=== PATIENT | female | born 1955 | race Caucasian/White ===

== ENCOUNTER 2016-04-09 12:57 | Outpatient (RCR) | payer BC ==
--- OUTSIDE RECORDS SUMMARY | 2016-04-08 15:25 | XMS REPORT | Continuity of Care Document ---
Author Author [facility] Organization [facility] Address Unknown Phone Unavailable Care Team Providers Care Electric Train Driver Name Role Phone ESE RECINOS MD PCP Insurance Providers Payer Name Policy Number Subscriber Name Relationship [facility] [id number] Ese Gilliam 17 Self / Same As Patient Advance Directives Directive Response Recorded Date/Time Advance Directives No 07/10/12 8:11pm Problems No known problems or medical conditions. Medications No known medications. Social History Social History Problem Response Recorded Date/Time Alcohol Use Denies Use 07/10/2012 8:11pm Recreational Drug Use No 07/10/2012 8:11pm Recent Foreign Travel [place] 05/25/2014 2:10pm Hospital Discharge Instructions No hospital discharge instructions. Plan of Care No plan of care. Functional Status No functional status results. Allergies, Adverse Reactions, Alerts Allergen Type Severity Reaction Status Last Updated No Known Drug Allergies Active 07/10/12 Immunizations No immunization records. Vital Signs No known vital signs results. Results Laboratory Results Test Name Result Units Flags Reference Collection Date/Time Result Date/ Time Comments White Blood Count 7.8 10^3/uL 4.3-11.0 05/25/2014 2:15pm 05/25/2014 2: 24pm Red Blood Count 4.51 10^6/uL 4.35-5.85 05/25/2014 2:15pm 05/25/2014 2: 24pm Hemoglobin 13.1 G/DL 11.5-16.0 05/25/2014 2:15pm 05/25/2014 2:24pm Hematocrit 40 % 35-52 05/25/2014 2:15pm 05/25/2014 2:24pm Mean Corpuscular Volume 90 FL 80-99 05/25/2014 2:15pm 05/25/2014 2: 24pm Mean Corpuscular Hemoglobin 29 PG 25-34 05/25/2014 2:15pm 05/25/2014 2: 24pm Mean Corpuscular Hemoglobin Concent 32 G/DL 32-36 05/25/2014 2:1509/2013 2:24pm Red Cell Distribution Width 14.5 % 10.0-14.5 05/25/2014 2:15pm 2013 2:24pm Platelet Count 291 10^3/uL 130-400 05/25/2014 2:15pm 05/25/2014 2:24pm Mean Platelet Volume 10.0 FL 7.4-10.4 05/25/2014 2:15pm 05/25/2014 2: 24pm Neutrophils (%) (Auto) 36 % L 42-75 05/25/2014 2:1505/25/2014 2:24pm Lymphocytes (%) (Auto) 56 % H 12-44 05/25/2014 2:15pm 05/25/2014 2:24pm Monocytes (%) (Auto) 5 % 0-12 05/25/2014 2:15pm 05/25/2014 2:24pm Eosinophils (%) (Auto) 1 % 0-10 05/25/2014 2:15pm 05/25/2014 2:24pm Basophils (%) (Auto) 1 % 0-10 05/25/2014 2:1505/25/2014 2:24pm Neutrophils # (Auto) 2.9 X 10^3 1.8-7.8 05/25/2014 2:1505/25/2014 2: 24pm Lymphocytes # (Auto) 4.4 X 10^3 H 1.0-4.0 05/25/2014 2:15pm 05/25/2014 2: 24pm Monocytes # (Auto) 0.4 X 10^3 0.0-1.0 05/25/2014 2:15pm 05/25/2014 2: 24pm Eosinophils # (Auto) 0.1 10^3/uL 0.0-0.3 05/25/2014 2:05/25/2014 2 :24pm Basophils # (Auto) 0.1 10^3/uL 0.0-0.1 05/25/2014 2:1505/25/2014 2: 24pm Sodium Level 139 MMOL/L 135-145 05/25/2014 2:15pm 05/25/2014 2:44pm Potassium Level 4.1 MMOL/L 3.6-5.0 05/25/2014 2:05/25/2014 2:44pm Chloride Level 104 MMOL/L 98-107 05/25/2014 2:05/25/2014 2:44pm Carbon Dioxide Level 26 MMOL/L 21-32 05/25/2014 2:15pm 05/25/2014 2: 44pm Blood Urea Nitrogen 20 MG/DL H 7-18 05/25/2014 2:pm 05/25/2014 2:44pm Creatinine 0.86 MG/DL 0.60-1.30 05/25/2014 2:pm 05/25/2014 2:44pm BUN/Creatinine Ratio 23 05/25/2014 2:05/25/2014 2:44pm Estimat Glomerular Filtration Rate > 60 05/25/2014 2:pm 2013 2:44pm GFR INTERPRETIVE DATA UNITS FOR ESTIMATED GFR (eGFR): mL/min/1.73 M2 REFERENCE RANGE FOR ESTIMATED GFR (eGFR) eGFR NORMAL eGFR >60 MODERATELY DECREASED eGFR 30-59 SEVERLY DECREASED eGFR 15-29 KIDNEY FAILURE <15 (OR DIALYSIS) Glucose Level 135 MG/DL H 70-105 05/25/2014 2:05/25/2014 2:44pm Calcium Level 9.3 MG/DL 8.5-10.1 05/25/2014 2:05/25/2014 2:44pm Total Bilirubin 0.7 MG/DL 0.1-1.0 05/25/2014 2:05/25/2014 2:44pm Alkaline Phosphatase 97 U/L 40-136 05/25/2014 2:05/25/2014 2:44pm Aspartate Amino Transf (AST/SGOT) 20 U/L 5-34 05/25/2014 2:15pm 2013 2:44pm Alanine Aminotransferase (ALT/SGPT) 14 U/L 0-55 05/25/2014 2:15pm 05/25 2:44pm Lactate Dehydrogenase 215 U/L 125-220 05/25/2014 2:15pm 05/25/2014 2: 44pm Total Protein 7.3 G/DL 6.4-8.2 05/25/2014 2:15pm 05/25/2014 2:44pm Albumin 4.0 G/DL 3.2-4.5 05/25/2014 2:15pm 05/25/2014 2:44pm Ecwa-8-Atejgcfyujcii 2.19 H MG/L 0.00-1.85 05/25/2014 2:15pm 2013 1:19pm Total Protein (PEP) 6.9 GM/DL 6.3-8.3 05/25/2014 2:15pm 05/26/2014 1: 19pm Protein Electrophoresis Pathologist SEE PATH REPORT 05/25/2014 2: 15pm 05/26/2014 1:19pm Protein Electrophoresis Note [id number] 05/25/2014 2:15pm 05/29/2014 8:02am Free Time Light Chains, Quant 11.35 MG/L 3.30-19.40 05/25/2014 2:15pm 05/26/2014 1:19pm Free Lambda Light Chains, Quant 12.43 MG/L 5.71-26.30 05/25/2014 2:15pm 05/26/2014 1:19pm Free Time/Lambda Light Chain Ratio 0.91 RATIO 0.26-1.65 05/25/2014 2: 15pm 05/26/2014 1:19pm Procedures No known history of procedures. Encounters Encounter Location Date/Time Discharged Recurring [facility] 05/25/14 2:10pm
[2016-04-08 15:46] LABS: BASOPHILS % (AUTO) 0 % (0-10); EOSINOPHILS # (AUTO) 0.1 10^3/uL (0.0-0.3); EOSINOPHILS % (AUTO) 1 % (0-10); LYMPHOCYTES # (AUTO) 7.3 X 10^3 (1.0-4.0); LYMPHOCYTES % (AUTO) 67 % (12-44); MEAN CORPUSCULAR HEMOGLOBIN 29 PG (25-34); MEAN CORPUSCULAR HGB CONC 33 G/DL (32-36); MEAN CORPUSCULAR VOLUME 90 FL (80-99); MEAN PLATELET VOLUME 10.2 FL (7.4-10.4); MONOCYTES # (AUTO) 0.6 X 10^3 (0.0-1.0); MONOCYTES % (AUTO) 6 % (0-12); NEUTROPHILS # (AUTO) 2.9 X 10^3 (1.8-7.8); NEUTROPHILS % (AUTO) 26 % (42-75); PLATELET COUNT 275 10^3/uL (130-400); RED BLOOD COUNT 4.55 10^6/uL (4.35-5.85); RED CELL DISTRIBUTION WIDTH 14.8 % (10.0-14.5)
[2016-04-08 16:14] LABS: ALANINE AMINOTRANSFERASE 18 U/L (0-55); ALBUMIN 4.1 G/DL (3.2-4.5); ANION GAP 8 MMOL/L (5-14); ASPARTATE AMINO TRANSFERASE 19 U/L (5-34); BILIRUBIN,TOTAL 0.7 MG/DL (0.1-1.0); BLOOD UREA NITROGEN 13 MG/DL (7-18); BUN/CREATININE RATIO 17; CALCIUM 9.1 MG/DL (8.5-10.1); CARBON DIOXIDE 24 MMOL/L (21-32); CHLORIDE 106 MMOL/L (98-107); CREATININE SERUM 0.77 MG/DL (0.60-1.30); GFR ESTIMATED > 60; GLUCOSE 88 MG/DL (70-105); LACTATE DEHYDROGENASE 216 U/L (125-220); SODIUM 138 MMOL/L (135-145)
== END 2016-07-07 | disposition home or self-care (01) ==
LOC: ONC 12:57
PROVIDERS: ATTEND Internal Medicine Hematology & Oncology
DX: C91.10 Chronic lymphocytic leukemia of B-cell type not having achieved remission (principal); E66.01 Morbid (severe) obesity due to excess calories; Z68.41 Body mass index [BMI] 40.0-44.9, adult
CPT/HCPCS: 36415; 80053; 82232; 83615; 85025; 99213

== ENCOUNTER 2016-11-13 13:39 | Outpatient (RCR) | payer BC ==
[2016-10-17 15:48] LABS: BASOPHILS # (AUTO) 0.1 10^3/uL (0.0-0.1); BASOPHILS % (AUTO) 1 % (0-10); EOSINOPHILS # (AUTO) 0.1 10^3/uL (0.0-0.3); EOSINOPHILS % (AUTO) 1 % (0-10); LYMPHOCYTES # (AUTO) 7.5 X 10^3 (1.0-4.0); LYMPHOCYTES % (AUTO) 71 % (12-44); MEAN CORPUSCULAR HEMOGLOBIN 28 PG (25-34); MEAN CORPUSCULAR HGB CONC 32 G/DL (32-36); MEAN CORPUSCULAR VOLUME 89 FL (80-99); MEAN PLATELET VOLUME 10.4 FL (7.4-10.4); MONOCYTES # (AUTO) 0.4 X 10^3 (0.0-1.0); MONOCYTES % (AUTO) 4 % (0-12); NEUTROPHILS # (AUTO) 2.4 X 10^3 (1.8-7.8); NEUTROPHILS % (AUTO) 23 % (42-75); PLATELET COUNT 284 10^3/uL (130-400); RED BLOOD COUNT 5.08 10^6/uL (4.35-5.85); RED CELL DISTRIBUTION WIDTH 14.7 % (10.0-14.5); WHITE BLOOD COUNT 10.5 10^3/uL (4.3-11.0)
[2016-10-17 16:04] LABS: ALANINE AMINOTRANSFERASE 20 U/L (0-55); ALBUMIN 4.1 G/DL (3.2-4.5); ANION GAP 10 MMOL/L (5-14); ASPARTATE AMINO TRANSFERASE 22 U/L (5-34); BILIRUBIN,TOTAL 1.2 MG/DL (0.1-1.0); BLOOD UREA NITROGEN 12 MG/DL (7-18); BUN/CREATININE RATIO 14; CALCIUM 9.4 MG/DL (8.5-10.1); CARBON DIOXIDE 25 MMOL/L (21-32); CHLORIDE 104 MMOL/L (98-107); CREATININE SERUM 0.83 MG/DL (0.60-1.30); GFR ESTIMATED > 60; GLUCOSE 82 MG/DL (70-105); LACTATE DEHYDROGENASE 215 U/L (125-220); POTASSIUM 3.9 MMOL/L (3.6-5.0); SODIUM 139 MMOL/L (135-145); TOTAL PROTEIN 7.2 G/DL (6.4-8.2)
[2016-12-12] MEDS ORDERED: NFBIOT1000 PO (11:22)
[2016-12-12] MEDS ORDERED: ESCI20TA PO (11:22)
[2016-12-12] MEDS ORDERED: KRIL1CAP18 PO (11:22)
[2016-12-12] MEDS ORDERED: LORA10TA76 PO (11:22)
[2016-12-12] MEDS ORDERED: CHOL10003 PO (11:22)
== END 2017-01-15 | disposition home or self-care (01) ==
LOC: ONC 13:39
PROVIDERS: ATTEND Internal Medicine Hematology & Oncology
DX: C91.10 Chronic lymphocytic leukemia of B-cell type not having achieved remission (principal); E66.01 Morbid (severe) obesity due to excess calories; Z68.41 Body mass index [BMI] 40.0-44.9, adult
CPT/HCPCS: 36415; 80053; 82232; 82784; 83615; 85025; 99213

== ENCOUNTER 2016-12-12 05:33 | Outpatient (CLI) | payer BC ==
[~2016-12-12] VITALS: Ht 167.6 cm; Wt 122.5 kg
[2016-12-12] MEDS ORDERED: ESCI20TA PO (11:22)
[2016-12-12] MEDS ORDERED: KRIL1CAP18 PO (11:22)
[2016-12-12] MEDS ORDERED: CHOL10003 PO (11:22)
[2016-12-12] MEDS ORDERED: NFBIOT1000 PO (11:22)
[2016-12-12] MEDS ORDERED: LORA10TA76 PO (11:22)
== END 2016-12-12 11:23 ==
LOC: PREOP 05:33
PROVIDERS: ATTEND Surgery
DX: Z01.818 Encounter for other preprocedural examination (principal); Z12.11 Encounter for screening for malignant neoplasm of colon

== ENCOUNTER 2016-12-16 09:00 | Day surgery (SDC) | payer BC ==
[~2016-12-16] VITALS: Ht 167.6 cm; Wt 122.5 kg
[~2016-12-16 09:00] MED LIST: CHOL10003 PO; ESCI20TA PO; KRIL1CAP18 PO; LORA10TA76 PO; NFBIOT1000 PO
[2016-12-16] MEDS ORDERED: LACTATED RINGERS 1,000 ML IV STA (09:06)
[2016-12-16] MEDS ORDERED: ceFAZolin 2 GM/50 ML NS 50 ML ONE (09:12)
[2016-12-16] MEDS ORDERED: ceFAZolin 2 GM/NS 50 ML IV ONE (09:30)
[2016-12-16] MEDS ORDERED: BENZOCAINE 20% SPRAY (HURRICANE) 60 ML CAN MT PRN (09:30)
[2016-12-16] MEDS ORDERED: LACTATED RINGERS 1,000 ML IV SCH (09:30)
[2016-12-16 09:36] VITALS: BP 141/73
[2016-12-16] MEDS ORDERED: PROPOFOL INJECTION 50 ML IV ONE (09:55)
[2016-12-16] MEDS ORDERED: MIDAZOLAM 2 MG/2 ML (VERSED) VIAL ONE (09:55)
--- OUTSIDE RECORDS SUMMARY | 2016-12-16 10:24 | XMS REPORT | Continuity of Care Document ---
Author Author [facility] Organization [facility] Address Unknown Phone Unavailable Allergies Active Description Code Type Severity Reaction Onset Reported/Identified Relationship to Patient Clinical Status Yes No Known Drug Allergies [id number] Drug Allergy Unknown N/ A 07/10/2012 Medications Problems Date Dx Coded Attending Type Code Diagnosis Diagnosed By 07/11/2012 Ot 275.41 HYPOCALCEMIA 07/11/2012 Ot 729.5 PAIN IN LIMB 07/11/2012 Ot 729.82 CRAMP IN LIMB 04/25/2014 DOUGLAS AARON MD Ot 288.61 LYMPHOCYTOSIS (SYMPTOMATIC) 05/17/2014 DOUGLAS AARON MD Ot 288.61 05/17/2014 DOUGLAS AARON MD Ot 288.61 05/25/2014 DOUGLAS AARON MD Ot 288.61 05/26/2014 DOUGLAS AARON MD Ot 288.61 05/29/2014 DOUGLAS AARON MD Ot 288.61 07/12/2014 DOUGLAS AARON MD Ot 288.61 08/23/2014 DOUGLAS AARON MD Ot 288.61 LYMPHOCYTOSIS (SYMPTOMATIC) 10/26/2014 DOUGLAS AARON MD Ot 288.61 10/26/2014 DOUGLAS AARON MD Ot 288.61 11/02/2014 DOUGLAS AARON MD Ot 288.61 11/03/2014 DOUGLAS AARON MD Ot 288.61 11/06/2014 DOUGLAS AARON MD Ot 288.61 12/14/2014 DOUGLAS AARON MD Ot 288.61 01/31/2015 DOUGLAS AARON MD Ot 288.61 LYMPHOCYTOSIS (SYMPTOMATIC) 07/04/2015 DOUGLAS AARON MD Ot 288.61 07/12/2015 DOUGLAS AARON MD Ot 288.61 08/09/2015 DOUGLAS AARON MD Ot C91.10 08/09/2015 DOUGLAS AARON MD Ot E66.01 08/09/2015 DOUGLAS AARON MD Ot Z68.41 10/09/2015 DOUGLAS AARON MD Ot C91.10 CHRONIC LYMPHOCYTIC LEUK OF B-CELL TYPE 10/09/2015 DOUGLAS AARON MD, Ot E66.01 MORBID (SEVERE) OBESITY DUE TO EXCESS CA 10/09/2015 DOUGLAS AARON MD, Ot Z68.41 BODY MASS INDEX (BMI) 40.0-44.9, ADULT 10/11/2015 DOUGLAS AARON MD, Ot C91.10 CHRONIC LYMPHOCYTIC LEUK OF B-CELL TYPE 10/11/2015 DOUGLAS AARON MD, Ot E66.01 MORBID (SEVERE) OBESITY DUE TO EXCESS CA 10/11/2015 DOUGLAS AARON MD, Ot Z68.41 BODY MASS INDEX (BMI) 40.0-44.9, ADULT 10/31/2015 DOUGLAS AARON MD, Ot C91.10 CHRONIC LYMPHOCYTIC LEUK OF B-CELL TYPE 10/31/2015 DOUGLAS AARON MD, Ot E66.01 MORBID (SEVERE) OBESITY DUE TO EXCESS CA 10/31/2015 DOUGLAS AARON MD, Ot Z68.41 BODY MASS INDEX (BMI) 40.0-44.9, ADULT 01/08/2016 DOUGLAS AARON MD, Ot C91.10 CHRONIC LYMPHOCYTIC LEUK OF B-CELL TYPE 01/08/2016 DOUGLAS AARON MD, Ot E66.01 MORBID (SEVERE) OBESITY DUE TO EXCESS CA 01/08/2016 DOUGLAS AARON MD, Ot Z68.41 BODY MASS INDEX (BMI) 40.0-44.9, ADULT 05/01/2016 DOUGLAS AARON MD, Ot C91.10 CHRONIC LYMPHOCYTIC LEUK OF B-CELL TYPE 05/01/2016 DOUGLAS AARON MD, Ot E66.01 MORBID (SEVERE) OBESITY DUE TO EXCESS CA 05/01/2016 DOUGLAS AARON MD, Ot Z68.41 BODY MASS INDEX (BMI) 40.0-44.9, ADULT 07/07/2016 DOUGLAS AARON MD, Ot C91.10 CHRONIC LYMPHOCYTIC LEUK OF B-CELL TYPE 07/07/2016 DOUGLAS AARON MD, Ot E66.01 MORBID (SEVERE) OBESITY DUE TO EXCESS CA 07/07/2016 DOUGLAS AARON MD, Ot Z68.41 BODY MASS INDEX (BMI) 40.0-44.9, ADULT 10/20/2016 DOUGLAS AARON MD, Ot C91.10 CHRONIC LYMPHOCYTIC LEUK OF B-CELL TYPE 10/20/2016 DOUGLAS AARON MD, Ot E66.01 MORBID (SEVERE) OBESITY DUE TO EXCESS CA 10/20/2016 DOUGLAS AARON MD, Ot Z68.41 BODY MASS INDEX (BMI) 40.0-44.9, ADULT 11/06/2016 DOUGLAS AARON MD Ot C91.10 CHRONIC LYMPHOCYTIC LEUK OF B-CELL TYPE 11/06/2016 DOUGLAS AARON MD, Ot E66.01 MORBID (SEVERE) OBESITY DUE TO EXCESS CA 11/06/2016 DOUGLAS AARON MD, Ot Z68.41 BODY MASS INDEX (BMI) 40.0-44.9, ADULT 11/13/2016 DOUGLAS AARON MD, Ot C91.10 CHRONIC LYMPHOCYTIC LEUK OF B-CELL TYPE 11/13/2016 DOUGLAS AARON MD, Ot E66.01 MORBID (SEVERE) OBESITY DUE TO EXCESS CA 11/13/2016 DOUGLAS AARON MD, Ot Z68.41 BODY MASS INDEX (BMI) 40.0-44.9, ADULT 11/13/2016 DOUGLAS AARON MD Ot 288.8 WBC DISEASE NEC 11/13/2016 DOUGLAS AARON MD, Ot C91.10 CHRONIC LYMPHOCYTIC LEUK OF B-CELL TYPE 11/13/2016 DOUGLAS AARON MD, Ot E66.01 MORBID (SEVERE) OBESITY DUE TO EXCESS CA 11/13/2016 DOUGLAS AARON MD, Ot Z68.41 BODY MASS INDEX (BMI) 40.0-44.9, ADULT 12/03/2016 DOUGLAS AARON MD, Ot C91.10 CHRONIC LYMPHOCYTIC LEUK OF B-CELL TYPE 12/03/2016 DOUGLAS AARON MD, Ot E66.01 MORBID (SEVERE) OBESITY DUE TO EXCESS CA 12/03/2016 DOUGLAS AARON MD Ot Z68.41 BODY MASS INDEX (BMI) 40.0-44.9, ADULT Procedures Results Encounters ACCT No. Visit Date/Time Discharge Status Pt. Type Provider Facility Loc./Unit Complaint [id number] 12/12/2016 05:33:00 2016 11:23:00 DIS Outpatient JORDAN RETANA DO [facility] PREOP COLONOSCOPY [id number] 04/09/2016 12:57:00 2016 00:01:00 DIS Outpatient DOUGLAS AARON MD [facility] ONC [id number] 10/10/2015 14:32:00 2015 00:01:00 DIS Outpatient DOUGLAS AARON MD [facility] ONC [id number] 10/08/2015 12:22:00 2015 00:01:00 DIS Outpatient DOUGLAS AARON MD [facility] ONC [id number] 11/02/2014 13:49:00 2014 00:01:00 DIS Outpatient DOUGLAS AARON MD [facility] ONC [id number] 05/25/2014 14:10:00 2013 23:59:59 CLS Outpatient DOUGLAS AARON MD [facility] ONC [id number] 02/23/2014 09:58:00 2013 00:01:00 DIS Outpatient DOUGLAS AARON MD [facility] ONC [id number] 02/16/2014 08:50:00 2013 23:59:59 CLS Outpatient DOUGLAS AARON MD [facility] RAD LYMPHOCYTOSIS [id number] 12/16/2016 10:15:00 PEN Preadmit JORDAN RETANA DO [facility] ENDO SCREENING [id number] 11/13/2016 13:39:00 ACT Outpatient DOUGLAS AARON MD [facility] ONC [id number] 07/10/2012 20:09:00 Document Registration
--- NOTE | 2016-12-16 10:50 | Progress Note-Pre Operative ---
Pre-Operative Progress Note H&P Reviewed The H&P was reviewed, patient examined and no changes noted. Date Seen by Provider: Dec 16, 2016 Time Seen by Provider: 10:49 Date H&P Reviewed: Dec 16, 2016 Time H&P Reviewed: 10:49 Pre-Operative Diagnosis: screening colonoscopy JORDAN RETANA DO Dec 16, 2016 10:50 am
--- NOTE | 2016-12-16 11:23 | Discharge Inst-Simple/Standard ---
Discharge Inst-Standard Patient Instructions/Follow Up Plan of Care/Instructions/FU: Follow up with Dr. Zapata as needed Will need repeat colonoscopy in 10 years or sooner if changes to current conditions Activity as Tolerated: Yes Discharge Diet: No Restrictions MILES VILLEDA APRN Dec 16, 2016 11:23
--- NOTE | 2016-12-16 11:31 | Operative Report ---
Operative Report Date of Procedure/Surgery Dec 16, 2016 Surgeon (s) JORDAN RETANA DO Hvac Service Tech (s): na Post-Operative Diagnosis normal colon Procedure Performed colonoscopy Description of Procedure Anesthesia Type: MAC Estimated blood loss (mL): none Specimen(s) collected/removed none Description of the Procedure COMPLICATIONS: None. INDICATIONS: The patient is a 61 female who presented with need for screening colonoscopy. She was recommended to have colonoscopy. She understands the risks and benefits and wished to proceed with procedure. Consent was signed and on the chart. The patient was taken to the endoscopy suite, placed in left lateral recumbent position. Timeout was performed. Digital rectal exam was performed and there were no palpable polyps, masses or ulcerations. Scope was inserted in the rectum and advanced all the way to the cecum with minimal difficulty. Prep was adequate. Scope was then slowly retracted back. There were no polyps, masses or ulcerations within the cecum, ascending, transverse, descending and sigmoid colon. Once in the rectum, scope was also retroflexed noting no other pathology. Scope was returned to its normal position, slowly withdrawn until completely removed. The patient tolerated procedure well without any complications. The patient was taken to recovery room in stable condition. RECOMMENDATIONS: Patient will recommend repeat colonoscopy in 10 years, if she has any problems be evaluated at that time; if family history colon cancer then 5 years. Findings of the Procedure see above Allergies and Home Medications Allergies Coded Allergies: No Known Drug Allergies (Unverified , 07/10/12) Home Medications Biotin 1,000 Mcg Tablet, 1,000 MCG PO DAILY, (Reported) Cholecalciferol (Vitamin D3) 1,000 Unit Tablet, 1,000 UNIT PO DAILY, (Reported) Escitalopram Oxalate 20 Mg Tablet, 20 MG PO DAILY, (Reported) Krill/Om-3/Dha/Epa/Phospho/Ast 1 Each Capsule, 1,000 MG PO BID, (Reported) Loratadine 10 Mg Tablet, 10 MG PO DAILY, (Reported) JORDAN RETANA DO Dec 16, 2016 11:31 am
[2016-12-16 11:40] VITALS: BP 112/61
[2016-12-16 12:10] VITALS: BP 121/73
[2016-12-16 12:20] VITALS: BP 121/73
== END 2016-12-16 12:20 | disposition home or self-care (01) ==
LOC: ENDO 09:00
PROVIDERS: ATTEND Surgery
DX: Z12.11 Encounter for screening for malignant neoplasm of colon (principal); C91.10 Chronic lymphocytic leukemia of B-cell type not having achieved remission; G47.33 Obstructive sleep apnea (adult) (pediatric); E66.01 Morbid (severe) obesity due to excess calories; Z68.41 Body mass index [BMI] 40.0-44.9, adult

== ENCOUNTER 2017-05-08 10:50 | Outpatient (RCR) | payer BC ==
[2017-05-04 14:15] LABS: BASOPHILS % (AUTO) 0 % (0-10); EOSINOPHILS # (AUTO) 0.1 10^3/uL (0.0-0.3); EOSINOPHILS % (AUTO) 1 % (0-10); HEMATOCRIT 45 % (35-52); HEMOGLOBIN 14.5 G/DL (11.5-16.0); LYMPHOCYTES # (AUTO) 7.5 X 10^3 (1.0-4.0); LYMPHOCYTES % (AUTO) 67 % (12-44); MEAN CORPUSCULAR HEMOGLOBIN 28 PG (25-34); MEAN CORPUSCULAR HGB CONC 32 G/DL (32-36); MEAN CORPUSCULAR VOLUME 88 FL (80-99); MEAN PLATELET VOLUME 10.4 FL (7.4-10.4); MONOCYTES # (AUTO) 0.6 X 10^3 (0.0-1.0); MONOCYTES % (AUTO) 5 % (0-12); NEUTROPHILS % (AUTO) 27 % (42-75); PLATELET COUNT 292 10^3/uL (130-400); RED CELL DISTRIBUTION WIDTH 14.7 % (10.0-14.5); WHITE BLOOD COUNT 11.2 10^3/uL (4.3-11.0)
[2017-05-04 14:35] LABS: SMEAR SCAN COMMENT YES
[2017-05-04 14:46] LABS: ALANINE AMINOTRANSFERASE 17 U/L (0-55); ALBUMIN 4.1 GM/DL (3.2-4.5); ALKALINE PHOSPHATASE 117 U/L (40-136); BUN/CREATININE RATIO 14; CALCIUM 9.3 MG/DL (8.5-10.1); CARBON DIOXIDE 23 MMOL/L (21-32); CHLORIDE 107 MMOL/L (98-107); CREATININE SERUM 0.79 MG/DL (0.60-1.30); GFR ESTIMATED > 60; GLUCOSE 91 MG/DL (70-105); POTASSIUM 4.1 MMOL/L (3.6-5.0); SODIUM 139 MMOL/L (135-145); TOTAL PROTEIN 7.6 GM/DL (6.4-8.2)
== END 2017-08-02 | disposition home or self-care (01) ==
LOC: ONC 10:50
PROVIDERS: ATTEND Internal Medicine Hematology & Oncology
DX: C91.10 Chronic lymphocytic leukemia of B-cell type not having achieved remission (principal); I10 Essential (primary) hypertension; E66.01 Morbid (severe) obesity due to excess calories; Z68.41 Body mass index [BMI] 40.0-44.9, adult; Z79.899 Other long term (current) drug therapy
CPT/HCPCS: 80053; 82232; 82784; 83615; 85025; 99213

== ENCOUNTER 2017-11-05 09:19 | Outpatient (RCR) | payer BC ==
[2017-11-03 13:47] LABS: BASOPHILS % (AUTO) 0 % (0-10); EOSINOPHILS # (AUTO) 0.1 10^3/uL (0.0-0.3); EOSINOPHILS % (AUTO) 1 % (0-10); HEMATOCRIT 44 % (35-52); HEMOGLOBIN 14.3 G/DL (11.5-16.0); LYMPHOCYTES # (AUTO) 10.8 X 10^3 (1.0-4.0); LYMPHOCYTES % (AUTO) 77 % (12-44); MEAN CORPUSCULAR HEMOGLOBIN 29 PG (25-34); MEAN CORPUSCULAR HGB CONC 32 G/DL (32-36); MEAN CORPUSCULAR VOLUME 88 FL (80-99); MEAN PLATELET VOLUME 11.5 FL (7.4-10.4); MONOCYTES # (AUTO) 0.6 X 10^3 (0.0-1.0); MONOCYTES % (AUTO) 4 % (0-12); NEUTROPHILS # (AUTO) 2.6 X 10^3 (1.8-7.8); NEUTROPHILS % (AUTO) 19 % (42-75); PLATELET COUNT 245 10^3/uL (130-400); RED BLOOD COUNT 5.01 10^6/uL (4.35-5.85); RED CELL DISTRIBUTION WIDTH 15.5 % (10.0-14.5); WHITE BLOOD COUNT 14.1 10^3/uL (4.3-11.0)
[2017-11-03 14:14] LABS: ALANINE AMINOTRANSFERASE 16 U/L (0-55); ALBUMIN 4.4 GM/DL (3.2-4.5); ALKALINE PHOSPHATASE 100 U/L (40-136); BUN/CREATININE RATIO 16; CALCIUM 9.5 MG/DL (8.5-10.1); CARBON DIOXIDE 25 MMOL/L (21-32); CHLORIDE 106 MMOL/L (98-107); GFR ESTIMATED > 60; GLUCOSE 108 MG/DL (70-105); POTASSIUM 4.5 MMOL/L (3.6-5.0); SODIUM 140 MMOL/L (135-145); TOTAL PROTEIN 7.6 GM/DL (6.4-8.2)
== END 2018-02-01 | disposition home or self-care (01) ==
LOC: ONC 09:19
PROVIDERS: ATTEND Internal Medicine Hematology & Oncology
DX: C91.10 Chronic lymphocytic leukemia of B-cell type not having achieved remission (principal); E66.01 Morbid (severe) obesity due to excess calories; Z68.41 Body mass index [BMI] 40.0-44.9, adult
CPT/HCPCS: 36415; 80053; 82232; 85025; 99213

== ENCOUNTER 2018-05-07 09:18 | Outpatient (RCR) | payer BC ==
[2018-05-05 13:30] LABS: BASOPHILS # (AUTO) 0.1 10^3/uL (0.0-0.1); BASOPHILS % (AUTO) 0 % (0-10); EOSINOPHILS # (AUTO) 0.1 10^3/uL (0.0-0.3); EOSINOPHILS % (AUTO) 1 % (0-10); HEMATOCRIT 43 % (35-52); HEMOGLOBIN 13.6 G/DL (11.5-16.0); LYMPHOCYTES # (AUTO) 12.6 X 10^3 (1.0-4.0); LYMPHOCYTES % (AUTO) 80 % (12-44); MEAN CORPUSCULAR HEMOGLOBIN 29 PG (25-34); MEAN CORPUSCULAR HGB CONC 32 G/DL (32-36); MEAN CORPUSCULAR VOLUME 92 FL (80-99); MONOCYTES # (AUTO) 0.5 X 10^3 (0.0-1.0); MONOCYTES % (AUTO) 3 % (0-12); NEUTROPHILS # (AUTO) 2.5 X 10^3 (1.8-7.8); NEUTROPHILS % (AUTO) 16 % (42-75); PLATELET COUNT 247 10^3/uL (130-400); RED CELL DISTRIBUTION WIDTH 14.5 % (10.0-14.5); WHITE BLOOD COUNT 15.8 10^3/uL (4.3-11.0)
[2018-05-05 13:57] LABS: ALANINE AMINOTRANSFERASE 14 U/L (0-55); ALBUMIN 4.2 GM/DL (3.2-4.5); ALKALINE PHOSPHATASE 104 U/L (40-136); BILIRUBIN,TOTAL 0.9 MG/DL (0.1-1.0); BUN/CREATININE RATIO 13; CALCIUM 9.4 MG/DL (8.5-10.1); CARBON DIOXIDE 26 MMOL/L (21-32); CHLORIDE 105 MMOL/L (98-107); GFR ESTIMATED > 60; GLUCOSE 87 MG/DL (70-105); POTASSIUM 4.3 MMOL/L (3.6-5.0); SODIUM 138 MMOL/L (135-145); TOTAL PROTEIN 7.4 GM/DL (6.4-8.2)
== END 2018-08-03 | disposition home or self-care (01) ==
LOC: ONC 09:18
PROVIDERS: ATTEND Internal Medicine Hematology & Oncology
DX: C91.10 Chronic lymphocytic leukemia of B-cell type not having achieved remission (principal); I10 Essential (primary) hypertension; Z79.899 Other long term (current) drug therapy
CPT/HCPCS: 36415; 80053; 83615; 85025; 99213

== ENCOUNTER 2018-11-05 09:01 | Outpatient (RCR) | payer BC ==
[2018-11-02 12:19] LABS: BASOPHILS % (AUTO) 0 % (0-10); EOSINOPHILS # (AUTO) 0.1 10^3/uL (0.0-0.3); EOSINOPHILS % (AUTO) 1 % (0-10); HEMATOCRIT 42 % (35-52); HEMOGLOBIN 13.7 G/DL (11.5-16.0); LYMPHOCYTES # (AUTO) 9.1 X 10^3 (1.0-4.0); LYMPHOCYTES % (AUTO) 76 % (12-44); MEAN CORPUSCULAR HEMOGLOBIN 29 PG (25-34); MEAN CORPUSCULAR HGB CONC 32 G/DL (32-36); MEAN CORPUSCULAR VOLUME 91 FL (80-99); MONOCYTES # (AUTO) 0.5 X 10^3 (0.0-1.0); MONOCYTES % (AUTO) 4 % (0-12); NEUTROPHILS # (AUTO) 2.3 X 10^3 (1.8-7.8); NEUTROPHILS % (AUTO) 19 % (42-75); PLATELET COUNT 244 10^3/uL (130-400); WHITE BLOOD COUNT 11.9 10^3/uL (4.3-11.0)
[2018-11-02 12:38] LABS: ALANINE AMINOTRANSFERASE 18 U/L (0-55); ALBUMIN 4.2 GM/DL (3.2-4.5); ALKALINE PHOSPHATASE 107 U/L (40-136); BILIRUBIN,TOTAL 0.9 MG/DL (0.1-1.0); BUN/CREATININE RATIO 20; CALCIUM 9.4 MG/DL (8.5-10.1); CARBON DIOXIDE 24 MMOL/L (21-32); CHLORIDE 106 MMOL/L (98-107); CREATININE SERUM 0.74 MG/DL (0.60-1.30); GFR ESTIMATED > 60; GLUCOSE 87 MG/DL (70-105); POTASSIUM 4.7 MMOL/L (3.6-5.0); SODIUM 139 MMOL/L (135-145); TOTAL PROTEIN 7.4 GM/DL (6.4-8.2)
== END 2019-01-31 | disposition home or self-care (01) ==
LOC: ONC 09:01
PROVIDERS: ATTEND Internal Medicine Hematology & Oncology
DX: C91.10 Chronic lymphocytic leukemia of B-cell type not having achieved remission (principal); I10 Essential (primary) hypertension; Z79.899 Other long term (current) drug therapy
CPT/HCPCS: 36415; 80053; 85025; 99213

== ENCOUNTER 2019-05-06 15:13 | Outpatient (RCR) | payer BC ==
[2019-05-03 14:09] LABS: BASOPHILS % (AUTO) 0 % (0-10); EOSINOPHILS # (AUTO) 0.1 10^3/uL (0.0-0.3); EOSINOPHILS % (AUTO) 1 % (0-10); HEMATOCRIT 42 % (35-52); HEMOGLOBIN 13.2 G/DL (11.5-16.0); LYMPHOCYTES # (AUTO) 8.5 X 10^3 (1.0-4.0); LYMPHOCYTES % (AUTO) 73 % (12-44); MEAN CORPUSCULAR HEMOGLOBIN 29 PG (25-34); MEAN CORPUSCULAR HGB CONC 32 G/DL (32-36); MEAN CORPUSCULAR VOLUME 91 FL (80-99); MEAN PLATELET VOLUME 10.4 FL (7.4-10.4); MONOCYTES # (AUTO) 0.5 X 10^3 (0.0-1.0); MONOCYTES % (AUTO) 4 % (0-12); NEUTROPHILS # (AUTO) 2.5 X 10^3 (1.8-7.8); NEUTROPHILS % (AUTO) 22 % (42-75); PLATELET COUNT 251 10^3/uL (130-400); RED CELL DISTRIBUTION WIDTH 14.3 % (10.0-14.5); WHITE BLOOD COUNT 11.6 10^3/uL (4.3-11.0)
[2019-05-03 14:25] LABS: ALANINE AMINOTRANSFERASE 13 U/L (0-55); ALBUMIN 4.1 GM/DL (3.2-4.5); ALKALINE PHOSPHATASE 95 U/L (40-136); BUN/CREATININE RATIO 15; CARBON DIOXIDE 26 MMOL/L (21-32); CHLORIDE 103 MMOL/L (98-107); CREATININE SERUM 0.72 MG/DL (0.60-1.30); GFR ESTIMATED > 60; GLUCOSE 87 MG/DL (70-105); POTASSIUM 4.1 MMOL/L (3.6-5.0); SODIUM 136 MMOL/L (135-145); TOTAL PROTEIN 7.2 GM/DL (6.4-8.2)
== END 2019-08-01 | disposition home or self-care (01) ==
LOC: ONC 15:13
PROVIDERS: ATTEND Internal Medicine Hematology & Oncology
DX: C91.10 Chronic lymphocytic leukemia of B-cell type not having achieved remission (principal); I10 Essential (primary) hypertension; Z79.899 Other long term (current) drug therapy
CPT/HCPCS: 36415; 80053; 84443; 85025; 99213

== ENCOUNTER 2019-11-08 09:34 | Outpatient (RCR) | payer MEDICARE, OTHER ==
[2019-11-04 15:26] LABS: BASOPHILS # (AUTO) 0.1 10^3/uL (0.0-0.1); BASOPHILS % (AUTO) 1 % (0-10); EOSINOPHILS # (AUTO) 0.1 10^3/uL (0.0-0.3); EOSINOPHILS % (AUTO) 1 % (0-10); HEMATOCRIT 46 % (35-52); HEMOGLOBIN 14.9 G/DL (11.5-16.0); LYMPHOCYTES # (AUTO) 8.2 X 10^3 (1.0-4.0); LYMPHOCYTES % (AUTO) 72 % (12-44); MEAN CORPUSCULAR HEMOGLOBIN 29 PG (25-34); MEAN CORPUSCULAR HGB CONC 33 G/DL (32-36); MEAN CORPUSCULAR VOLUME 89 FL (80-99); MEAN PLATELET VOLUME 10.2 FL (7.4-10.4); MONOCYTES # (AUTO) 0.4 X 10^3 (0.0-1.0); MONOCYTES % (AUTO) 4 % (0-12); NEUTROPHILS # (AUTO) 2.6 X 10^3 (1.8-7.8); NEUTROPHILS % (AUTO) 23 % (42-75); PLATELET COUNT 283 10^3/uL (130-400); RED CELL DISTRIBUTION WIDTH 14.4 % (10.0-14.5); WHITE BLOOD COUNT 11.4 10^3/uL (4.3-11.0)
[2019-11-04 15:57] LABS: ALANINE AMINOTRANSFERASE 11 U/L (0-55); ALBUMIN 4.2 GM/DL (3.2-4.5); ALKALINE PHOSPHATASE 98 U/L (40-136); BUN/CREATININE RATIO 15; CALCIUM 9.3 MG/DL (8.5-10.1); CARBON DIOXIDE 24 MMOL/L (21-32); CHLORIDE 106 MMOL/L (98-107); CREATININE SERUM 0.88 MG/DL (0.60-1.30); GFR ESTIMATED > 60; GLUCOSE 120 MG/DL (70-105); SODIUM 141 MMOL/L (135-145); TOTAL PROTEIN 7.7 GM/DL (6.4-8.2)
== END 2020-02-02 | disposition home or self-care (01) ==
LOC: ONC 09:34
PROVIDERS: ATTEND Internal Medicine Hematology & Oncology
DX: C91.10 Chronic lymphocytic leukemia of B-cell type not having achieved remission (principal)
CPT/HCPCS: 80053; 84443; 85025; 99213

== ENCOUNTER 2020-05-04 14:00 | Outpatient (RCR) | payer MEDICARE, OTHER ==
[2020-05-01 16:02] LABS: BASOPHILS # (AUTO) 0.1 10^3/uL (0.0-0.1); BASOPHILS % (AUTO) 1 % (0-10); EOSINOPHILS # (AUTO) 0.1 10^3/uL (0.0-0.3); EOSINOPHILS % (AUTO) 1 % (0-10); HEMATOCRIT 42 % (35-52); HEMOGLOBIN 13.1 g/dL (11.5-16.0); LYMPHOCYTES # (AUTO) 9.5 10^3/uL (1.0-4.0); LYMPHOCYTES % (AUTO) 69 % (12-44); MEAN CORPUSCULAR HEMOGLOBIN 29 pg (25-34); MEAN CORPUSCULAR HGB CONC 32 g/dL (32-36); MEAN CORPUSCULAR VOLUME 92 fL (80-99); MEAN PLATELET VOLUME 10.1 fL (9.0-12.2); MONOCYTES # (AUTO) 0.6 10^3/uL (0.0-1.0); MONOCYTES % (AUTO) 4 % (0-12); NEUTROPHILS # (AUTO) 3.4 10^3/uL (1.8-7.8); NEUTROPHILS % (AUTO) 25 % (42-75); PLATELET COUNT 297 10^3/uL (130-400); WHITE BLOOD COUNT 13.7 10^3/uL (4.3-11.0)
[2020-05-01 16:18] LABS: ALANINE AMINOTRANSFERASE 11 U/L (0-55); ALBUMIN 4.2 GM/DL (3.2-4.5); ALKALINE PHOSPHATASE 87 U/L (40-136); BUN/CREATININE RATIO 20; CALCIUM 9.1 MG/DL (8.5-10.1); CARBON DIOXIDE 24 MMOL/L (21-32); CHLORIDE 105 MMOL/L (98-107); CREATININE SERUM 0.88 MG/DL (0.60-1.30); GFR ESTIMATED > 60; GLUCOSE 82 MG/DL (70-105); POTASSIUM 3.9 MMOL/L (3.6-5.0); SODIUM 137 MMOL/L (135-145); TOTAL PROTEIN 7.4 GM/DL (6.4-8.2)
== END 2020-07-30 | disposition home or self-care (01) ==
LOC: ONC 14:00
PROVIDERS: ATTEND Internal Medicine Hematology & Oncology
DX: C91.10 Chronic lymphocytic leukemia of B-cell type not having achieved remission (principal); D72.820 Lymphocytosis (symptomatic); I10 Essential (primary) hypertension
CPT/HCPCS: 80053; 84443; 85025; 99213

== ENCOUNTER → 2020-12-13 | Outpatient (CLI) | payer MEDICARE, OTHER ==
[2020-12-13 12:59] LABS: BASOPHILS # (AUTO) 0.1 10^3/uL (0.0-0.1); BASOPHILS % (AUTO) 1 % (0-10); EOSINOPHILS # (AUTO) 0.1 10^3/uL (0.0-0.3); EOSINOPHILS % (AUTO) 1 % (0-10); HEMATOCRIT 44 % (35-52); HEMOGLOBIN 13.7 g/dL (11.5-16.0); LYMPHOCYTES # (AUTO) 8.3 10^3/uL (1.0-4.0); LYMPHOCYTES % (AUTO) 67 % (12-44); MEAN CORPUSCULAR HEMOGLOBIN 29 pg (25-34); MEAN CORPUSCULAR HGB CONC 31 g/dL (32-36); MEAN CORPUSCULAR VOLUME 91 fL (80-99); MEAN PLATELET VOLUME 10.2 fL (9.0-12.2); MONOCYTES # (AUTO) 0.5 10^3/uL (0.0-1.0); MONOCYTES % (AUTO) 4 % (0-12); NEUTROPHILS # (AUTO) 3.4 10^3/uL (1.8-7.8); NEUTROPHILS % (AUTO) 27 % (42-75); PLATELET COUNT 279 10^3/uL (130-400); WHITE BLOOD COUNT 12.4 10^3/uL (4.3-11.0)
[2020-12-13 13:25] LABS: ALANINE AMINOTRANSFERASE 13 U/L (0-55); ALKALINE PHOSPHATASE 114 U/L (40-136); BILIRUBIN,TOTAL 0.8 MG/DL (0.1-1.0); BUN/CREATININE RATIO 25; CALCIUM 9.1 MG/DL (8.5-10.1); CARBON DIOXIDE 26 MMOL/L (21-32); CHLORIDE 104 MMOL/L (98-107); CREATININE SERUM 0.73 MG/DL (0.60-1.30); GFR ESTIMATED > 60; GLUCOSE 115 MG/DL (70-105); POTASSIUM 4.2 MMOL/L (3.6-5.0); SODIUM 138 MMOL/L (135-145); TOTAL PROTEIN 7.7 GM/DL (6.4-8.2)
== END ==
LOC: EDSTATUS 07-31 08:04 → ONC 12:45
PROVIDERS: ATTEND Internal Medicine Hematology & Oncology
DX: C91.10 Chronic lymphocytic leukemia of B-cell type not having achieved remission (principal); I10 Essential (primary) hypertension; E66.01 Morbid (severe) obesity due to excess calories; Z85.72 Personal history of non-Hodgkin lymphomas
CPT/HCPCS: 80053; 85025; G0463; 99213

== ENCOUNTER → 2021-12-06 | Outpatient (CLI) | payer MEDICARE, OTHER | LOC: LAB 11:33 | PROVIDERS: ATTEND Family Medicine | DX: Z53.9 Procedure and treatment not carried out, unspecified reason (principal) ==

== ENCOUNTER 2021-12-12 12:57 | Outpatient (RCR) | payer MEDICARE, OTHER ==
[2021-12-06 11:51] LABS: BILIRUBIN,URINE NEGATIVE (NEGATIVE); CLARITY,URINE CLEAR; COLOR,URINE YELLOW; GLUCOSE, URINE (UA) NEGATIVE (NEGATIVE); KETONES,URINE NEGATIVE (NEGATIVE); LEUKOCYTE ESTERASE ,URINE 1+ (NEGATIVE); NITRITE,URINE NEGATIVE (NEGATIVE); PH,URINE 5.5 (5-9); PROTEIN,URINE NEGATIVE (NEGATIVE)
[2021-12-06 11:52] LABS: BASOPHILS # (AUTO) 0.1 10^3/uL (0.0-0.1); BASOPHILS % (AUTO) 1 % (0-10); EOSINOPHILS # (AUTO) 0.1 10^3/uL (0.0-0.3); EOSINOPHILS % (AUTO) 0 % (0-10); HEMATOCRIT 43 % (35-52); HEMOGLOBIN 13.8 g/dL (11.5-16.0); LYMPHOCYTES # (AUTO) 10.1 10^3/uL (1.0-4.0); LYMPHOCYTES % (AUTO) 75 % (12-44); MEAN CORPUSCULAR HEMOGLOBIN 29 pg (25-34); MEAN CORPUSCULAR HGB CONC 32 g/dL (32-36); MEAN CORPUSCULAR VOLUME 89 fL (80-99); MEAN PLATELET VOLUME 10.5 fL (9.0-12.2); MONOCYTES # (AUTO) 0.5 10^3/uL (0.0-1.0); MONOCYTES % (AUTO) 4 % (0-12); NEUTROPHILS # (AUTO) 2.6 10^3/uL (1.8-7.8); NEUTROPHILS % (AUTO) 20 % (42-75); PLATELET COUNT 277 10^3/uL (130-400); WHITE BLOOD COUNT 13.4 10^3/uL (4.3-11.0)
[2021-12-06 12:07] LABS: BACTERIA,URINE FEW /HPF; RBC,URINE RARE /HPF
[2021-12-06 12:08] LABS: AMORPHOUS SEDIMENT,UR RARE AMOR URATES /LPF
[2021-12-06 12:16] LABS: ALBUMIN 4.1 GM/DL (3.2-4.5); BILIRUBIN,TOTAL 1.1 MG/DL (0.1-1.0); CREATININE SERUM 0.84 MG/DL (0.60-1.30); POTASSIUM 4.3 MMOL/L (3.6-5.0); TOTAL PROTEIN 7.3 GM/DL (6.4-8.2)
== END 2021-12-19 | disposition home or self-care (01) ==
LOC: ONC 12:57
PROVIDERS: ATTEND Internal Medicine Hematology & Oncology
DX: C91.10 Chronic lymphocytic leukemia of B-cell type not having achieved remission (principal); I10 Essential (primary) hypertension; E66.01 Morbid (severe) obesity due to excess calories; Z85.72 Personal history of non-Hodgkin lymphomas; R82.90 Unspecified abnormal findings in urine
CPT/HCPCS: 36415; 80053; 80061; 81000; 84443; 85025; 87088; 99213

== ENCOUNTER → 2022-12-15 | Outpatient (CLI) | payer MEDICARE, OTHER ==
[2022-12-15 11:50] LABS: BILIRUBIN,URINE NEGATIVE (NEGATIVE); CLARITY,URINE CLEAR; COLOR,URINE YELLOW; GLUCOSE, URINE (UA) NEGATIVE (NEGATIVE); KETONES,URINE NEGATIVE (NEGATIVE); LEUKOCYTE ESTERASE ,URINE 3+ (NEGATIVE); NITRITE,URINE NEGATIVE (NEGATIVE); PROTEIN,URINE NEGATIVE (NEGATIVE)
[2022-12-15 11:58] LABS: BACTERIA,URINE MODERATE /HPF
== END ==
LOC: LAB 11:19
PROVIDERS: ATTEND Family Medicine
DX: E78.5 Hyperlipidemia, unspecified (principal)
CPT/HCPCS: 36415; 80061; 81000; 84443; 87088

== ENCOUNTER 2022-12-18 12:45 | Outpatient (RCR) | payer MEDICARE, OTHER ==
[2022-12-15 11:50] LABS: BASOPHILS # (AUTO) 0.1 10^3/uL (0.0-0.1); BASOPHILS % (AUTO) 1 % (0-10); EOSINOPHILS # (AUTO) 0.1 10^3/uL (0.0-0.3); EOSINOPHILS % (AUTO) 1 % (0-10); HEMATOCRIT 43 % (35-52); HEMOGLOBIN 13.8 g/dL (11.5-16.0); LYMPHOCYTES # (AUTO) 9.9 10^3/uL (1.0-4.0); LYMPHOCYTES % (AUTO) 76 % (12-44); MEAN CORPUSCULAR HEMOGLOBIN 28 pg (25-34); MEAN CORPUSCULAR HGB CONC 32 g/dL (32-36); MEAN CORPUSCULAR VOLUME 89 fL (80-99); MEAN PLATELET VOLUME 10.4 fL (9.0-12.2); MONOCYTES # (AUTO) 0.4 10^3/uL (0.0-1.0); MONOCYTES % (AUTO) 3 % (0-12); NEUTROPHILS # (AUTO) 2.5 10^3/uL (1.8-7.8); NEUTROPHILS % (AUTO) 19 % (42-75); PLATELET COUNT 261 10^3/uL (130-400)
[2022-12-15 12:06] LABS: ALBUMIN 4.1 GM/DL (3.2-4.5); BILIRUBIN,TOTAL 1.2 MG/DL (0.1-1.0); CREATININE SERUM 0.78 MG/DL (0.60-1.30); POTASSIUM 4.2 MMOL/L (3.6-5.0)
== END 2022-12-19 | disposition home or self-care (01) ==
LOC: ONC 12:45
PROVIDERS: ATTEND Internal Medicine Hematology & Oncology
DX: C91.90 Lymphoid leukemia, unspecified not having achieved remission (principal); E66.9 Obesity, unspecified; I10 Essential (primary) hypertension
CPT/HCPCS: 36415; 80053; 85025